=== PATIENT | male | born 1995 | race Caucasian/White ===

== ENCOUNTER 2017-03-22 14:39 | Emergency (ER) | payer OTHER ==
[~2017-03-22 14:39] MED LIST: ASMANEX INH; FOCALIN PO; KCL20L PO; MAG PO; PROINH INH; RITE AID MELATON1 MG PO; SER25 PO; [UNRECOGNIZED DRUG - OTHER] IH
[2017-03-22 15:04] VITALS: BP 124/64
== END 2017-03-22 15:28 | disposition left against medical advice (07) ==
LOC: ED 14:39
DX: Z53.21 Procedure and treatment not carried out due to patient leaving prior to being seen by health care provider (principal)

== ENCOUNTER 2019-06-09 06:47 | Emergency (ER) | payer OTHER ==
[~2019-06-09] VITALS: Ht 162.6 cm; Wt 60.4 kg
[2019-06-09 06:55] VITALS: Ht 162.6 cm; Wt 60.4 kg
[2019-06-09 08:18] VITALS: BP 110/75
== END 2019-06-09 08:18 | disposition home or self-care (01) ==
LOC: ED 06:47
DX: S93.602A Unspecified sprain of left foot, initial encounter (principal); J45.909 Unspecified asthma, uncomplicated; E78.00 Pure hypercholesterolemia, unspecified; F31.9 Bipolar disorder, unspecified; W23.0XXA Caught, crushed, jammed, or pinched between moving objects, initial encounter; Y93.89 Activity, other specified; Y92.488 Other paved roadways as the place of occurrence of the external cause; Y99.8 Other external cause status
CPT/HCPCS: J1885; Q0092

== ENCOUNTER 2020-08-10 22:36 | Emergency (ER) | payer OTHER ==
[~2020-08-10] VITALS: Ht 175.3 cm; Wt 68.0 kg
[2020-08-11 00:40] LABS: BASOPHIL % 0.4 % (0-2); PLATELET COUNT 324 x10^3mcL (130-400)
[2020-08-11 00:48] LABS: RED CELL DISTRIBUTION WIDTH 14.6 % (11.5-14.5)
[2020-08-11 00:55] VITALS: Ht 175.3 cm; Wt 68.0 kg
[2020-08-11 00:57] LABS: CALCIUM 9.1 mg/dL (8.5-10.1); CARBON DIOXIDE 30.7 mmol/L (21-32); CHLORIDE SERUM 102 mmol/L (98-107); CREATININE SERUM 0.9 mg/dL (0.7-1.3); GFR1 > 60 mL/min; GLUCOSE SERUM 112 mg/dL (74-106); SODIUM SERUM 135 mmol/L (136-145)
[2020-08-11 01:09] LABS: ALBUMIN 3.5 g/dL (3.4-5.0); ALKALINE PHOSPHATASE 63 U/L (46-116); ALT/SGPT 14 U/L (16-63); AST/SGOT 14 U/L (15-37); BILIRUBIN TOTAL 0.3 mg/dL (0.20-1.00); T4(THYROXINE) 8.3 ug/dL (4.7-13.3); TOTAL PROTEIN, SERUM 7.1 g/dL (6.4-8.2)
[2020-08-11 04:59] LABS: AMPHETAMINE QUAL UR POSITIVE (See below)
[2020-08-11 06:39] VITALS: BP 131/103
== END 2020-08-11 06:39 | disposition home or self-care (01) ==
LOC: ED 22:36
PROVIDERS: Emergency Medicine
DX: S09.90XA Unspecified injury of head, initial encounter (principal); T42.4X1A Poisoning by benzodiazepines, accidental (unintentional), initial encounter; R41.82 Altered mental status, unspecified; E16.2 Hypoglycemia, unspecified; E78.00 Pure hypercholesterolemia, unspecified; J45.909 Unspecified asthma, uncomplicated; F31.9 Bipolar disorder, unspecified; Y92.89 Other specified places as the place of occurrence of the external cause
CPT/HCPCS: 82962; G0480